=== PATIENT | female | born 1970 | race Caucasian/White ===

== ENCOUNTER 2016-10-07 10:31 | Day surgery (SDC) | payer OTHER ==
[~2016-10-07] VITALS: Ht 167.6 cm; Wt 73.8 kg
[2016-10-07] VITALS (11 sets, daily range): BP systolic 111–136; BP diastolic 65–86; PULSE 62–103; RESP 8–16; O2SAT 94–99
[~2016-10-07 10:31] MED LIST: CYCL10TA9 PO; DULO30CA PO; GABA-502 PO; KETO30SY IJ; KETO60SY IM; ONDA-54 PO
[2016-10-07] MEDS ORDERED: Rocuronium 10 mg/mL 5 mL Inj ONE (10:32)
[2016-10-07] MEDS ORDERED: fentaNYL-PF 50 mCg/mL 2 mL Inj ONE (10:32)
[2016-10-07] MEDS ORDERED: Propofol 10,000 mCg/mL 20 mL Inj ONE (10:32)
[2016-10-07] MEDS ORDERED: Ondansetron 2 mg/mL 2 mL Inj ONE (10:32)
[2016-10-07] MEDS ORDERED: Lidocaine PF 1% 30 mL Inj ONE (10:32)
[2016-10-07] MEDS ORDERED: Dexamethasone 4 mg/mL Inj ONE (10:32)
[2016-10-07] MEDS ORDERED: Glycopyrrolate 0.2 mg/mL 5 mL Inj ONE (10:32)
[2016-10-07] MEDS: Lactated Ringer's 1,000 ML IV SCH ×2 (10:43→12:12)
[2016-10-07] MEDS ORDERED: PROG100C6 PO (10:47)
--- NOTE | 2016-10-07 11:52 | PCM.HPANE ---
Patient Data Date of Service: Oct 07, 2016 Surgeon Admitting Provider: Attending Provider:Quinton Amezquita MD Primary Care Physician:Leatha Asencio MD Other Provider:Samra Kennedy Anesthesia Reason for Visit Endometriosis Ht/WT & BMI Height (Feet): 5 Height (Inches): 6 Weight (Kilograms): 73.8 Body Mass Index 26.00 Allergies Coded Allergies: Penicillins (Verified Allergy, Severe, HIVES, 06/26/16) Sulfa (Sulfonamide Antibiotics) (Verified Allergy, Severe, HIVES, 06/26/16) Past Anesthesia History Anesthesia History: Denies:: Anesthesia Reactions, Malignant Hyperthermia Diabetes History Hx Diabetes?: No MRSA MRSA: No Medications Hypertension Medication: No Home Meds Incl Beta Bianca: No Reported Medications Progesterone,Micronized (Progesterone)100 Mg [id number] Mg PO DAILY #60 10/07/16 Ondansetron 8 Mg Tablet8 Mg PO Q8H PRN For Nausea 10/06/16 Ketorolac Tromethamine 30 Mg/1 Ml Rhiofhw96 Mg IJ PRN For Pain 1-2ml IM once 24hr period-up to 5 days total use 10/06/16 Gabapentin 300 Mg Ruhlmch726 Mg PO TID Ref 0 10/06/16 Duloxetine (Cymbalta)30 Mg Capsule.dr30 Mg PO DAILY Ref 0 10/06/16 Cyclobenzaprine 10 Mg Gosepg15 Mg PO DAILY PRN Spasm 10/06/16 Discontinued Reported Medications Ketorolac Tromethamine 60 Mg/2 Ml Ifwpozw38 Mg IM PRN For Pain 1 ml IM in one 24hr perior up to 5 times month 10/06/16 Bupropion ER (Wellbutrin XL)300 Mg Tab.er.87e170 Mg PO DAILY #30 TABLET Ref 0 06/21/14 Norethindrone-Ethinyl Estrad (Ortho-Novum)1 Each Tablet1 Each PO DAILY 06/20/14 Gabapentin 300 Mg Guafgte265 Mg PO TID 30 Days Ref 0 06/20/14 History History of ENT Problems?: Yes HEENT History: Positive for:: Sinus Problem (hx of sinus surgery) Denies:: Cataracts Dysphagia Hx of Heart Problems?: No Cardiovascular History: Denies:: Congestive Heart Failure Hypertension Hx of Respiratory Problem?: No Respiratory History: Denies:: Asthma COPD Emphysema Oxygen Administration Pneumonia Tuberculosis Use of C-PAP Machine Hx Neurologic Problems?: Yes Neurological History: Positive for:: Headaches Denies:: Alzheimer's Disease CVA Dementia Dizziness Parkinson's Disease Seizures Hx of GI Problems?: Yes Gastrointestinal History: Positive for:: Gastroesphageal Reflux Heartburn Rectal Bleeding (06/2011 HOSP ADMISSION FOR ACUTE SIGMOID COLITIS) Denies:: Diverticulitis (hx of acute colitis) Gastrointestinal Bleeding Hepatitis Hiatal Hernia Hx of Problems?: Yes Genitourinary History: Positive for:: Kidney Stones (past hx of) Denies:: HX of Hemodialysis Urinary Tract Infection HX of Peritoneal Dialysis: No Female Hx: Positive for:: Endometriosis (chronic pelvic pain, current admission problem) Denies:: Currently (hx tvh) Pelvic Inflammatory Problems with Breasts? Skin History: Positive for:: History Skin Disorders? (S/P EXC BOTH BASAL CELL & SQUAMOUS CELL SKIN CA'S,SKIN GRAFT) Denies:: Pressure Ulcers Hx Musculoskeletal Problems?: Yes Musculoskeletal History: Positive for:: Degenerative Joint Fibromyalgia Hx of Psycho/Social Problems?: Yes Psycho Social History: Positive for:: Hx Depression Denies:: Anxiety Bipolar Disorder Suicide Attempt Hx Surgeries?: Yes (lap hyst, salpingectomy, sinus surgery, MOHs surgery) Hx Any Other Health Problems?: Yes Other History: Positive for:: Cancer (BCC, SCC) Hospitalization Denies:: Endocrine Disease Thyroid Disease History Blood Transfusions: Denies:: Blood Transfuse Reaction Blood Transfusions Hx Diabetes: No Hx Alcohol Use: NoHx Substance Use: No Smoking Status: Never Smoker Have You Smoked inLast 12 mo: No Stop/Bang P-Blood Pressure: treated: No B- Body Mass Index > 35 kg/m2: No A- Age over 50: No N- Neck Large Circumference: No G- Gender Male: No BRENDA Risk Assessment: Low Risk, <3 Yes Risk Assessment Category Category 1A: Patient has history of documented sleep apnea, and HAS NOT received any narcotic, sedative or anesthesia administration during this stay. Category 1B: Patient has history of documented sleep apnea, and HAS received any narcotic , sedative or anesthesia administration during this stay Category 2: Patient has SUSPECTED Obstructive Sleep Apnea, and HAS received any narcotic , sedative or anesthesia administration during this stay. Category 3: Patient has SUSPECTED Obstructive Sleep Apnea and HAS NOT received narcotic, sedative or anesthesia administration during this stay. Category 4: Outpatient in Procedural Areas with known sleep apnea or who screen positive for High Risk via the STOP/BANG questionnaire. Exam Exam Vital Signs Vital Signs Date Time Temp Pulse Resp B/P Pulse Ox O2 Delivery O2 Flow Rate FiO2 10/07/16 10:52 35.8 94 16 136/86 97 Room Air General Appearance: Alert, Oriented X3, Cooperative, No Acute Distress HEENT/AIRWAY: MP 2 Lungs: Clear to Auscultation, Normal Air Movement Heart: Exam Unremarkable, Regular Rate/Rhythm, No Murmurs/Rubs/Gallops Meds/Labs/Diagnostics Admission Meds Current Medications Lactated Ringer's (Lr) 1,000 ml @ 120 mls/hr Q8H20M IV Last administered on t 10:43; Start 10/07/16 at 05:00; Stop 10/07/16 at 13:19 Plan Impression Patient chart reviewed, patient interviewed and anesthestic plan with risks, benefits, and alternatives discussed, and informed consent obtained. NPO Status: 10/06/16 ASA Physical Status: ASA2 Mod Systemic Disease Anesthetic Plan: GA Bene/Risks/Altern/Consents: Yes HP Complete Prior to Induction: Yes Jv Cantu MD Oct 07, 2016 11:52
[2016-10-07] MEDS ORDERED: Lactated Ringer's 500 ML IV PRN (12:46)
[2016-10-07] MEDS ORDERED: Bupivacaine-MPF 0.5% W/EPI 30 mL Inj INFILTRATE ONE (12:46)
[2016-10-07] MEDS ORDERED: Lactated Ringer's 1,000 ML IV SCH (12:46)
[2016-10-07] MEDS ORDERED: hydrALAZINE 20 mg/mL Inj IVPUSH PRN (12:50)
[2016-10-07] MEDS ORDERED: Labetalol 5 mg/mL 4 mL Inj IV PRN (12:50)
[2016-10-07] MEDS ORDERED: Ondansetron 2 mg/mL 2 mL Inj IVPUSH PRN ×2 (12:50→13:25)
[2016-10-07] MEDS ORDERED: Atropine 0.4 mg/mL Inj IVPUSH PRN (12:50)
[2016-10-07] MEDS ORDERED: EPHEDrine Sulfate 50 mg/mL Inj IVPUSH PRN (12:50)
[2016-10-07] MEDS ORDERED: fentaNYL-PF 50 mCg/mL 2 mL Inj IVPUSH PRN (12:50)
[2016-10-07] MEDS ORDERED: Phenylephrine 10,000 mCg/mL Inj IVPUSH PRN (12:50)
[2016-10-07] MEDS ORDERED: HYDROmorphone 1 mg/mL Inj IVPUSH PRN (12:50)
[2016-10-07] MEDS ORDERED: MetoCLOpramide 5 mg/mL 2 mL Inj IVPUSH PRN (12:50)
[2016-10-07] MEDS ORDERED: oxyCODONE-Acetamin 5-325 mg Tablet PO PRN (13:25)
[2016-10-07] MEDS ORDERED: diphenhydrAMINE 25 mg Capsule PO PRN (13:25)
[2016-10-07] MEDS ORDERED: DOCU-41 PO (13:29)
[2016-10-07] MEDS ORDERED: OXYC1TAB24 PO (13:29)
--- NOTE | 2016-10-07 13:33 | PCM.DIGYN ---
Surgical Discharge Instruction Dates of Hospitalization Date of Hospital Admission 10/07/2016 Providers Admitting Physician: Primary Care Physician: Leatha Asencio MD Attending Physician: Quinton Amezquita MD Diagnosis at Time of Discharge Problems: (1) Endometriosis Status: Acute ICD Code: N80.9 Diet Discharge Diet: No restrictions Activity Discharge Activity-General: Be up and about, No lifting >15 pounds for 2 weeks , No driving while taking narcotic, Other (Pelvic rest for 2 weeks (no intercourse)) Dressing and Incisional Care Hygiene: May shower, DO NOT soak incision under water Additional Instructions Discharge Instructions You had an uncomplicated laparoscopy with removal of both ovaries. There were no unusual findings during your surgery. You should anticipate abdominal cramping and pain at home following this surgery. It is important to eat, stay hydrated and be up and about. The ovaries appeared normal with surgery, but I still sent them to the pathologist. The pathology results should return before I leave and my office will call you with the results. Follow Up Plan Follow-up Provider (F9): Neto Bernardo MD Follow-up appointment: Weeks (2), As previously arranged Quinton Amezquita MD Oct 07, 2016 13:33
--- NOTE | 2016-10-07 13:46 | PCM.SURGOP ---
Surgical Operative Report Date of Service: Oct 07, 2016 Pre Operative Diagnosis 1. Endometriosis diagnosed by laparoscopy in the past 2. Pelvic pain Post Operative Diagnosis Same Procedure: Laparoscopic bilateral oophorectomy Surgeon and Senior Stereo Compiler Team Lead: Surgeon: Quinton Amezquita MD Assistants: Neto Bernardo MD, Dr.'s assistance was necessary for safe completion of this case. Indication for Procedure Tracy is a 46 yo with history of surgically confirmed endometriosis (no histology confirmation) here today a bilateral oophorectomy. Her dysmenorrhea was well controlled with OCPs until age [age]. She then while on OCPs started experiencing tremendous pain. She then had a diagnostic laparoscopy with fulguration of endometriosis 02/2012. Endometriosis noted on uterosacral ligaments. She felt improvement in symptoms for 6 weeks, then they returned. She then underwent TVH 07/2012 and again had improvement for 6 weeks. She tried Lupron therapy which was not helpful, she was on norethindrone 5mg daily therapy which was helpful at first and then less helpful in time. She then underwent laparoscopy with bilateral salpingectomy with Dr. Anderson in 2013. No endometriosis was able to be seen at the time of this surgery. Her then started her on micronized progesterone 200 mg daily and feels like she has gained weight about 30 lbs in the last 5 years. She has tried not taking the progesterone and is barely able to get out of bed as the pain becomes extreme without it. She desires definitive treatment of her endometriosis with surgical menopause. Risks, benefits and alternatives were discussed in detail and verbal and written consent obtained in the office on 10/06/2016. Findings: Normal bilateral ovaries. Absence of uterus and tubes. No evidence of endometriosis. Normal appendix. Normal liver, gallbladder, stomach, bowel. No evidence of adhesive disease. Procedure Details The patient was take to the operating room and laid supine position. General anesthesia was established. The carpenter was placed. She was prepped and draped in the usual sterile fashion. A time out was performed to confirm the correct patient and procedure. The umbilical area was injected with 0.5% Marcaine with epinephrine. A Veress needle was inserted intraabdominal placement was confirmed with a drop in CO2 pressure and drop of a water filled syringe. The abdomen was then insufflated. A 5mm periumbilical skin incision was then made and a 5 mm trocar was placed with direct visualization through the port. Intraabdominal placement was confirmed with the laparoscope. Inspection revealed no apparent injuries or complications. Additional 0.5% Marcaine with epinephrine was then injected on the left and with direct visualization a 5mm port was placed. This was repeated on the right and an 11mm port placed here. Exploration of the abdominal cavity revealed no abnormalities. Bilateral ureteral peristalsis noted and well away from the ovaries and IP ligaments. The ovaries were removed using a thunderbeat. Hemostasis noted even with pressure lowered to 6. The right port was removed and fascia closed with a Weck laparoscopic closure device using 0-Vicryl. The CO2 was evacuated and other instruments were removed. The incisions were closed with 4-0 suture and Dermabond. The Carpenter was removed. The patient was taken to the recovery room in stable condition. Sponge, needle and instrument counts were correct x 2 at the close of the procedure. IVF: 700mL UOP: 100mL Antibiotics: None indicated. VTE prophylaxis: SCDs Complications There were no periprocedural complications identified. Surgical Specimen Removed: Yes Specimen sent to Pathology: Yes Surgical Specimen description: Bilateral ovaries Anesthetic Plan: GA Grafts, Implants: None Output, Estimated Blood Loss: 2 (mL) Blood Administration during isaacs: No Catheters: Urethral 2 Way Carpenter Post Operative Plan Home later today when recovered. Quinton Amezquita MD Oct 07, 2016 13:46
--- NOTE | 2016-10-07 13:46 | PCM.ANEP1 ---
Post Anesthesia Phase 1 PACU Phase 1 Assessment Date of Service: Oct 07, 2016 Vital Signs Vital Signs Date Time Temp Pulse Resp B/P Pulse Ox O2 Delivery O2 Flow Rate FiO2 10/07/16 13:35 102 13 135/77 99 Simple Mask 10 10/07/16 13:30 36.1 103 14 135/77 99 Simple Mask 10 10/07/16 10:52 35.8 94 16 136/86 97 Room Air Anesthetic Administered: GA Level of Alertness: Sleeping, hard to arouse AYALA's with Equal Strength: Yes Pain: No Nausea or Vomiting: No Oxygen Delivery: Simple Mask Lungs: Clear to Auscultation, Normal Air Movement Jv Cantu MD Oct 07, 2016 13:46
--- NOTE | 2016-10-08 10:52 | PCM.ANEP2 ---
Post Anesthesia Evaluation ASA/CMS Post Anesthesia Date of Service: Oct 07, 2016 VS in Patient's Normal Range?: Yes Resp Stable; Airway Patent?: Yes CV Function & Hydration Stable: Yes Mental Status Recovered?: Yes Pain control Satisfactory?: Yes N/V Control Satisfactory?: Yes Jv Cantu MD Oct 08, 2016 10:52
--- NOTE | 2016-10-10 10:10 | PATH ---
SURGICAL PATHOLOGY Attending Physician:Quinton Amezquita MD CASE STATUS: Signed Out PATIENT NAME: SELWYN ANDRES PID: [id number] : 1970 DATE COLLECTED:10/07/2016 21:47 SPECIMEN: 1: Ovary +/- tube, non-tumor 2: Ovary +/- tube, non-tumor CLINICAL HISTORY: ENDOMETRIOSIS 1). RIGHT OVARY, OUT 12:50 TIF 12:51 2). LEFT OVARY, OUT 12:55 TIF 12:56 FINAL DIAGNOSIS: 1. 2. RIGHT AND LEFT OVARIES: MULTIFOCAL ENDOMETRIOSIS INVOLVING BOTH OVARIES. NEGATIVE FOR MALIGNANCY AND SIGNIFICANT ATYPIA. ICD10 CODE N80.9 GROSS DESCRIPTION: The specimens are received in formalin, labeled with the patient's name, and sublabeled as the following: (1) right ovary; (2) left ovary. (1) The specimen consists of an ovary (1.8 x 1.3 x 0.7 cm). The serosa is angulo-white smooth shiny and bosselated. The parenchyma is angulo-white solid and firm with focal pallor. Section code: (1A-1B) ovary, serially sectioned. Specimen entirely submitted. (2) The specimen consists of an ovary (1.8 x 0.8 x 0.7 cm). The serosa is angulo-white smooth shiny and bosselated. The parenchyma is angulo-white solid firm with corpus albicans identified. Section code: (2A) ovary, serial sections. Specimen entirely submitted. 10/08/16 MICRO DESCRIPTION: See diagnosis. ICD-9 CODES: CPT CODES: 1: 25450 2: 71470 Electronically Signed Out Gibran Perdomo MD [facility] [address], [place] [address] Technical component performed at [facility], [facility] [address], [place], [address]
== END 2016-10-07 23:59 | disposition home or self-care (01) ==
LOC: SAS 10:31
PROVIDERS: ATTEND Obstetrics & Gynecology
DX: N80.1 Endometriosis of ovary (principal); R51 Headache; K21.9 Gastro-esophageal reflux disease without esophagitis; R12 Heartburn; F32.9 Major depressive disorder, single episode, unspecified; Z79.899 Other long term (current) drug therapy